=== PATIENT | male | born 1940 | race Caucasian/White ===

== ENCOUNTER 2019-04-20 05:33 | Day surgery (SDC) | payer OTHER ==
[~2019-04-20] VITALS: Ht 195.6 cm; Wt 263.1 kg
[2019-04-20] MEDS ORDERED: SODIUM CHLORIDE 0.9% 1000ML 1,000 ML IV ONE (05:56)
[2019-04-20 07:09] VITALS: BP 128/85
[2019-04-20] MEDS ORDERED: LIDOCAINE HCL 1% 20 ML VIAL ONE (08:59)
[2019-04-20] MEDS ORDERED: PROPOFOL 10 MG/ML 20ML VIAL IV ONE (08:59)
[2019-04-20 09:28] VITALS: BP 106/64
[2019-04-20 09:33] VITALS: BP 109/66
[2019-04-20 09:39] VITALS: BP 119/73
[2019-04-20 09:43] VITALS: BP 116/68
[2019-04-20] MEDS ORDERED: CARB-283 OP (09:47)
[2019-04-20] MEDS ORDERED: GABA800T9 PO (09:47)
[2019-04-20] MEDS ORDERED: CYCLOSPORINE (09:47)
[2019-04-20] MEDS ORDERED: DORZ10DR19 OP (09:47)
[2019-04-20] MEDS ORDERED: HYDR-4068 PO (09:47)
[2019-04-20] MEDS ORDERED: FLUTICASONE (09:47)
[2019-04-20] MEDS ORDERED: BUDE10.2 IH (09:47)
[2019-04-20] MEDS ORDERED: APIX5TAB PO (09:47)
[2019-04-20] MEDS ORDERED: AMLO5TAB9 PO (09:47)
[2019-04-20] MEDS ORDERED: DOCU-133 PO (09:47)
[2019-04-20] MEDS ORDERED: LIDOC (09:47)
[2019-04-20] MEDS ORDERED: ALBUTEROL (09:47)
[2019-04-20] MEDS ORDERED: PROVENTIL (09:47)
[2019-04-20] MEDS ORDERED: BUDESONIDE (09:47)
== END 2019-04-20 10:14 | disposition home or self-care (01) ==
LOC: DAH 05:33
PROVIDERS: ATTEND Internal Medicine
DX: K59.01 Slow transit constipation (principal); D12.2 Benign neoplasm of ascending colon; D12.5 Benign neoplasm of sigmoid colon; J44.9 Chronic obstructive pulmonary disease, unspecified; E66.9 Obesity, unspecified; H40.9 Unspecified glaucoma; I11.0 Hypertensive heart disease with heart failure; I50.9 Heart failure, unspecified; M19.90 Unspecified osteoarthritis, unspecified site; Z86.010 Personal history of colon polyps; Z79.899 Other long term (current) drug therapy; Z98.49 Cataract extraction status, unspecified eye; Z90.49 Acquired absence of other specified parts of digestive tract; Z98.890 Other specified postprocedural states; Z88.0 Allergy status to penicillin; Z88.1 Allergy status to other antibiotic agents; Z88.3 Allergy status to other anti-infective agents; Z68.44 Body mass index [BMI] 60.0-69.9, adult; Z87.891 Personal history of nicotine dependence; Z72.89 Other problems related to lifestyle
CPT/HCPCS: 45380; 45385; 88305; A4215; A4221; A4222; A4223; A4606; A4615; A4663; J2704; J7030

== ENCOUNTER 2020-01-03 19:05 | Emergency (ER) | payer OTHER ==
[~2020-01-03 19:05] MED LIST: ALBUTEROL; AMLO5TAB9 PO; BUDE10.2 IH; BUDESONIDE; CARB-283 OP; CYCLOSPORINE; DOCU-133 PO; DORZ10DR19 OP; FLUTICASONE; GABA800T9 PO; HYDR-4068 PO; LIDOC; PROVENTIL
[2020-01-03] MEDS ORDERED: MORPHINE SULFATE 4 MG/1ML SYG ONE (19:54)
[2020-01-03] MEDS ORDERED: ONDANSETRON HCL 4 MG/2 ML VIAL ONE (19:55)
[2020-01-03 20:01] LABS: BASOPHILS % (AUTO) 0.6 % (0.0-5.0); EOSINOPHILS % (AUTO) 5.5 % (0.0-8.0); HEMATOCRIT 39.9 % (42-54); LYMPHOCYTES % (AUTO) 27.3 % (21.0-51.0); MEAN CORPUSCULAR HGB CONC 32.1 g/dL (32.0-36.0); MEAN CORPUSCULAR VOLUME 87.3 fL (79-99); MONOCYTES % (AUTO) 8.2 % (3.0-13.0); NEUTROPHILS % (AUTO) 57.7 % (40.0-77.0); PLATELET COUNT (AUTO) 148 K/uL (130-400); RED BLOOD CELL COUNT(AUTO) 4.57 MIL/uL (4.50-6.20); RED CELL DISTRIBUTION WIDTH 13.8 % (11.0-15.5); WHITE BLOOD COUNT (AUTO) 8.4 K/uL (4.8-10.8)
[2020-01-03 20:16] LABS: ALBUMIN 3.4 g/dL (3.5-5.0); BILIRUBIN,TOTAL 0.4 mg/dL (0.2-1.0); TOTAL PROTEIN, SERUM 6.7 g/dL (6.0-8.3)
== END 2020-01-03 21:46 | disposition home or self-care (01) ==
LOC: EDH 19:05
DX: G89.29 Other chronic pain (principal); M54.5 Low back pain; J44.9 Chronic obstructive pulmonary disease, unspecified; Z95.828 Presence of other vascular implants and grafts; Z88.0 Allergy status to penicillin; Z91.018 Allergy to other foods; Z87.891 Personal history of nicotine dependence; Z98.890 Other specified postprocedural states
CPT/HCPCS: 36415; 72131; 80053; 85025; 96374; 96375; 99284; J2270; J2405

== ENCOUNTER 2021-12-03 09:28 | Emergency (ER) | payer OTHER ==
[~2021-12-03] VITALS: Ht 195.6 cm; Wt 110.7 kg
[~2021-12-03 09:28] MED LIST changes: +AMLO-257 PO; -AMLO5TAB9 PO
[2021-12-03 10:31] LABS: BASOPHILS % (AUTO) 0.5 % (0.0-5.0); EOSINOPHILS % (AUTO) 11.8 % (0.0-8.0); HEMATOCRIT 39.8 % (42-54); LYMPHOCYTES % (AUTO) 22.9 % (21.0-51.0); MEAN CORPUSCULAR HEMOGLOBIN 28.1 pg (27.0-33.0); MEAN CORPUSCULAR HGB CONC 31.9 g/dL (32.0-36.0); MEAN CORPUSCULAR VOLUME 88.1 fL (79-99); MONOCYTES % (AUTO) 8.4 % (3.0-13.0); NEUTROPHILS % (AUTO) 55.4 % (40.0-77.0); PLATELET COUNT (AUTO) 152 K/uL (130-400); RED BLOOD CELL COUNT(AUTO) 4.52 MIL/uL (4.50-6.20); RED CELL DISTRIBUTION WIDTH 13.2 % (11.0-15.5); WHITE BLOOD COUNT (AUTO) 7.7 K/uL (4.8-10.8)
[2021-12-03 10:41] LABS: INR 1.02 (0.85-1.15); PROTHROMBIN TIME 11.1 SEC (9.6-11.6)
[2021-12-03 10:42] LABS: PARTIAL THROMBOPLASTIN TIME 27.6 SEC (26.3-35.5)
[2021-12-03 10:47] LABS: BILIRUBIN,TOTAL 0.6 mg/dL (0.2-1.0); CREATININE 0.9 mg/dL (0.5-1.5); TOTAL PROTEIN, SERUM 5.9 g/dL (6.0-8.3)
[2021-12-03 11:13] LABS: APPEARANCE,URINE CLEAR (CLEAR); BILIRUBIN,URINE NEGATIVE (NEGATIVE); COLOR,URINE YELLOW (YELLOW); GLUCOSE, URINE (UA) NEGATIVE (NEGATIVE); KETONES,URINE NEGATIVE (NEGATIVE); LEUKOCYTE ESTERASE ,URINE NEGATIVE (NEGATIVE); NITRATE,URINE NEGATIVE (NEGATIVE); OCCULT BLOOD,URINE NEGATIVE (NEGATIVE); PROTEIN,URINE NEGATIVE (NEGATIVE); UROBILINOGEN,URINE 0.2 mg/dL (0.2-1.0)
[2021-12-03] MEDS: SOLU-MEDROL 125MG VIAL IVP ONE (11:16)
[2021-12-03] MEDS: ALBUTEROL INHALER 90MCG/INH IH ONE (11:16)
[2021-12-03] MEDS ORDERED: PRED20TA3 PO (12:02)
[2021-12-03] MEDS ORDERED: AZIT500T2 PO (12:02)
[2021-12-03] MEDS ORDERED: IPRA3AMP24 IH (12:04)
[2021-12-03 12:21] VITALS: BP 122/72
[2021-12-03] MEDS: IPRATROPIUM/ALBUTEROL SULFATE 3 ML SOLUTION IH ONE (12:23)
== END 2021-12-03 12:36 | disposition home or self-care (01) ==
LOC: EDH 09:28
DX: J44.1 Chronic obstructive pulmonary disease with (acute) exacerbation (principal); Z20.822 Contact with and (suspected) exposure to COVID-19; E78.00 Pure hypercholesterolemia, unspecified; I10 Essential (primary) hypertension; Z88.0 Allergy status to penicillin; Z79.899 Other long term (current) drug therapy; Z98.890 Other specified postprocedural states; Z87.891 Personal history of nicotine dependence
CPT/HCPCS: 36415; 71045; 80053; 81003; 82550; 83605; 84484; 85025; 85610; 85730; 87040 ×2; 87088; 87635; 87804 ×2; 94640; 96374; 99284; C9803; J2930

== ENCOUNTER 2022-05-08 10:03 | Emergency (ER) | payer OTHER ==
[~2022-05-08] VITALS: Ht 195.6 cm; Wt 112.5 kg
[~2022-05-08 10:03] MED LIST changes: +ACET-2079 PO; +AZIT500T2 PO; +IPRA3AMP24 IH; +LEVO750T68 PO; +PRED20TA3 PO
[2022-05-08] MEDS ORDERED: SOLU-MEDROL 125MG VIAL IVP STA (10:10)
[2022-05-08] MEDS ORDERED: IPRATROPIUM/ALBUTEROL SULFATE 3 ML SOLUTION IH STA (10:10)
[2022-05-08 10:33] LABS: BASOPHILS % (AUTO) 0.7 % (0.0-5.0); EOSINOPHILS % (AUTO) 11.2 % (0.0-8.0); HEMATOCRIT 41.2 % (42-54); LYMPHOCYTES % (AUTO) 18.3 % (21.0-51.0); MEAN CORPUSCULAR HEMOGLOBIN 28.3 pg (27.0-33.0); MEAN CORPUSCULAR HGB CONC 31.6 g/dL (32.0-36.0); MEAN CORPUSCULAR VOLUME 89.6 fL (79-99); MONOCYTES % (AUTO) 8.7 % (3.0-13.0); PLATELET COUNT (AUTO) 168 K/uL (130-400); RED CELL DISTRIBUTION WIDTH 13.2 % (11.0-15.5); WHITE BLOOD COUNT (AUTO) 8.4 K/uL (4.8-10.8)
[2022-05-08 10:43] LABS: POTASSIUM 3.8 mmol/L (3.5-5.1)
[2022-05-08 10:48] LABS: ALBUMIN 3.3 g/dL (3.5-5.0); TOTAL PROTEIN, SERUM 6.6 g/dL (6.0-8.3)
[2022-05-08] MEDS ORDERED: AZITHROMYCIN 250 MG TABLET PO ONE (11:00)
[2022-05-08] MEDS ORDERED: IPRATROPIUM/ALBUTEROL SULFATE 3 ML SOLUTION IH ONE (13:30)
[2022-05-08] MEDS ORDERED: D-ME118S47 PO (13:33)
[2022-05-08] MEDS ORDERED: METH4TAB3 PO (13:33)
[2022-05-08] MEDS ORDERED: AZIT250T PO (13:33)
[2022-05-08 15:16] VITALS: BP 139/76
== END 2022-05-08 15:17 | disposition home or self-care (01) ==
LOC: EDH 10:03
DX: J44.1 Chronic obstructive pulmonary disease with (acute) exacerbation (principal); J20.9 Acute bronchitis, unspecified; Z20.822 Contact with and (suspected) exposure to COVID-19; F17.200 Nicotine dependence, unspecified, uncomplicated; Z88.0 Allergy status to penicillin; Z79.899 Other long term (current) drug therapy; Z98.890 Other specified postprocedural states; Z60.2 Problems related to living alone
CPT/HCPCS: 99285; 96374; 71045; 87635; 84484; 80053; 85025; 87804 ×2; 36415; 93005; 94640 ×2; C9803; J2930

== ENCOUNTER 2022-05-30 12:04 | Emergency (ER) | payer OTHER ==
[~2022-05-30] VITALS: Ht 180.3 cm; Wt 95.3 kg
[~2022-05-30 12:04] MED LIST changes: +AZIT250T PO; +D-ME118S47 PO; +METH4TAB3 PO
[2022-05-30] MEDS ORDERED: IPRATROPIUM/ALBUTEROL SULFATE 3 ML SOLUTION IH ONE (12:30)
[2022-05-30 12:33] LABS: BASOPHILS % (AUTO) 0.5 % (0.0-5.0); EOSINOPHILS % (AUTO) 8.7 % (0.0-8.0); HEMATOCRIT 40.3 % (42-54); LYMPHOCYTES % (AUTO) 26.2 % (21.0-51.0); MEAN CORPUSCULAR HEMOGLOBIN 28.5 pg (27.0-33.0); MONOCYTES % (AUTO) 7.5 % (3.0-13.0); NEUTROPHILS % (AUTO) 56.1 % (40.0-77.0); PLATELET COUNT (AUTO) 135 K/uL (130-400); RED BLOOD CELL COUNT(AUTO) 4.53 MIL/uL (4.50-6.20); WHITE BLOOD COUNT (AUTO) 5.9 K/uL (4.8-10.8)
[2022-05-30 12:39] LABS: CREATININE 1.1 mg/dL (0.5-1.5); POTASSIUM 3.5 mmol/L (3.5-5.1)
[2022-05-30 12:48] LABS: ALBUMIN 3.2 g/dL (3.5-5.0); MAGNESIUM 1.9 mg/dL (1.80-2.40); TOTAL PROTEIN, SERUM 6.5 g/dL (6.0-8.3)
[2022-05-30] MEDS ORDERED: ONDANSETRON 4MG INJ IVP ONE (13:00)
[2022-05-30] MEDS ORDERED: 0.9%NACL 1000ML 1,000 ML IV ONE (14:00)
[2022-05-30 15:32] VITALS: BP 102/64
[2022-05-30] MEDS ORDERED: ALBUHFA IH (15:48)
[2022-05-30] MEDS ORDERED: BENZ-39 PO (15:48)
[2022-07-02] MEDS ORDERED: DOCU100C33 PO (02:41)
[2022-07-02] MEDS ORDERED: DIPH25TA20 PO (02:41)
[2022-07-02] MEDS ORDERED: AMLO-257 PO (02:41)
[2022-07-02] MEDS ORDERED: RIVA20TA PO (02:41)
[2022-07-02] MEDS ORDERED: GABA800T9 PO (02:41)
[2022-07-02] MEDS ORDERED: LINA145C PO (02:41)
[2022-07-02] MEDS ORDERED: MONT-39 PO (02:41)
[2022-07-02] MEDS ORDERED: TIOT18CA3 IH (02:41)
[2022-07-02] MEDS ORDERED: LATA7.5D OP (13:54)
== END 2022-05-30 16:13 | disposition home or self-care (01) ==
LOC: EDH 12:04
DX: J20.9 Acute bronchitis, unspecified (principal); R42 Dizziness and giddiness; J44.9 Chronic obstructive pulmonary disease, unspecified; I10 Essential (primary) hypertension; F17.200 Nicotine dependence, unspecified, uncomplicated; Z79.51 Long term (current) use of inhaled steroids; Z79.52 Long term (current) use of systemic steroids; Z88.0 Allergy status to penicillin; Z96.653 Presence of artificial knee joint, bilateral
CPT/HCPCS: 99285; 96374; 71045; 96361; 83735; 84484; 80053; 85025; 36415; 93005; 94640; J7030; J2405

== ENCOUNTER 2022-06-10 09:10 | Emergency (ER) | payer OTHER ==
[~2022-06-10] VITALS: Ht 195.6 cm; Wt 113.4 kg
[~2022-06-10 09:10] MED LIST changes: +ALBUHFA IH; +BENZ-39 PO
[2022-06-10] MEDS ORDERED: ALBUTEROL 0.083% 2.5 MG/3 ML INH IH ONE (11:00)
[2022-06-10] MEDS ORDERED: DEXAMETHASONE SOD PHOSPHATE 4 MG/ML 1ML VIAL IM ONE (11:30)
[2022-06-10] MEDS ORDERED: IPRATROPIUM 0.5 MG/2.5 ML INH IH ONE (11:30)
[2022-06-10 14:11] VITALS: BP 124/76
== END 2022-06-10 14:18 | disposition home or self-care (01) ==
LOC: EDH 09:10
DX: J44.1 Chronic obstructive pulmonary disease with (acute) exacerbation (principal); I10 Essential (primary) hypertension; F17.200 Nicotine dependence, unspecified, uncomplicated; Z20.822 Contact with and (suspected) exposure to COVID-19; Z88.0 Allergy status to penicillin; Z96.653 Presence of artificial knee joint, bilateral; Z79.899 Other long term (current) drug therapy
CPT/HCPCS: 99284; 71046; 87635; 87804 ×2; 96372; 94640; J1100; C9803

== ENCOUNTER 2022-06-19 05:46 | Emergency (ER) | payer OTHER ==
[2022-06-19 06:09] LABS: BASOPHILS % (AUTO) 0.8 % (0.0-5.0); HEMATOCRIT 42.2 % (42-54); LYMPHOCYTES % (AUTO) 24.5 % (21.0-51.0); MEAN CORPUSCULAR HEMOGLOBIN 27.8 pg (27.0-33.0); MEAN CORPUSCULAR VOLUME 86.8 fL (79-99); MONOCYTES % (AUTO) 7.8 % (3.0-13.0); NEUTROPHILS % (AUTO) 53.8 % (40.0-77.0); PLATELET COUNT (AUTO) 152 K/uL (130-400); RED BLOOD CELL COUNT(AUTO) 4.86 MIL/uL (4.50-6.20); RED CELL DISTRIBUTION WIDTH 13.4 % (11.0-15.5); WHITE BLOOD COUNT (AUTO) 10.5 K/uL (4.8-10.8)
[2022-06-19 06:27] LABS: ALBUMIN 3.1 g/dL (3.5-5.0); CREATININE 0.9 mg/dL (0.5-1.5); POTASSIUM 3.7 mmol/L (3.5-5.1); TOTAL PROTEIN, SERUM 6.5 g/dL (6.0-8.3)
[2022-06-19] MEDS ORDERED: IPRATROPIUM 0.5 MG/2.5 ML INH IH ONE (06:30)
[2022-06-19] MEDS ORDERED: ALBUTEROL 0.083% 2.5 MG/3 ML INH IH ONE (06:30)
[2022-06-19] MEDS ORDERED: MAG/ALUM/SIMETH 30 ML UDCUP PO ONE (08:00)
[2022-06-19] MEDS ORDERED: PANTOPRAZOLE 40 MG/VIAL IVP ONE (08:00)
[2022-06-19] MEDS ORDERED: DICYCLOMINE HCL 10 MG/5 ML ML PO ONE (08:00)
[2022-06-19] MEDS ORDERED: LIDOCAINE HCL 2% VISCOUS 15 ML UDCUP PO ONE (08:00)
[2022-06-19] MEDS ORDERED: BENZ-39 PO (11:20)
[2022-06-19] MEDS ORDERED: ESOM40CA PO (11:20)
[2022-06-19 11:30] VITALS: BP 116/74
== END 2022-06-19 11:32 | disposition home or self-care (01) ==
LOC: EDH 05:46
DX: J20.9 Acute bronchitis, unspecified (principal); J44.9 Chronic obstructive pulmonary disease, unspecified; I10 Essential (primary) hypertension; K20.90 Esophagitis, unspecified without bleeding; F17.200 Nicotine dependence, unspecified, uncomplicated; Z20.822 Contact with and (suspected) exposure to COVID-19; Z96.653 Presence of artificial knee joint, bilateral; Z88.0 Allergy status to penicillin; Z79.899 Other long term (current) drug therapy; Z98.890 Other specified postprocedural states
CPT/HCPCS: 99285; 96374; 71045; 87635; 84484; 80053; 85025; 87804 ×2; 36415; 93005; 94640; C9803; C9113

== ENCOUNTER 2022-06-24 04:50 | Observation (INO) | payer OTHER ==
[~2022-06-24] VITALS: Ht 195.6 cm; Wt 113.4 kg
[~2022-06-24 04:50] MED LIST changes: +ESOM40CA PO
[2022-06-24 05:23] LABS: BASOPHILS % (AUTO) 0.5 % (0.0-5.0); EOSINOPHILS % (AUTO) 11.8 % (0.0-8.0); HEMATOCRIT 44.2 % (42-54); LYMPHOCYTES % (AUTO) 16.7 % (21.0-51.0); MEAN CORPUSCULAR HEMOGLOBIN 28.3 pg (27.0-33.0); MEAN CORPUSCULAR HGB CONC 31.7 g/dL (32.0-36.0); MEAN CORPUSCULAR VOLUME 89.3 fL (79-99); MONOCYTES % (AUTO) 7.5 % (3.0-13.0); NEUTROPHILS % (AUTO) 62.8 % (40.0-77.0); PLATELET COUNT (AUTO) 151 K/uL (130-400); RED BLOOD CELL COUNT(AUTO) 4.95 MIL/uL (4.50-6.20); RED CELL DISTRIBUTION WIDTH 13.6 % (11.0-15.5); WHITE BLOOD COUNT (AUTO) 13.7 K/uL (4.8-10.8)
[2022-06-24 05:35] LABS: POTASSIUM 4.1 mmol/L (3.5-5.1)
[2022-06-24 05:52] LABS: ALBUMIN 3.4 g/dL (3.5-5.0); TOTAL PROTEIN, SERUM 6.8 g/dL (6.0-8.3)
[2022-06-24] MEDS ORDERED: CEFTRIAXONE 1G VIAL IVP ONE (06:00)
[2022-06-24] MEDS ORDERED: IPRATROPIUM/ALBUTEROL SULFATE 3 ML SOLUTION IH ONE (06:00)
[2022-06-24] MEDS ORDERED: SOLU-MEDROL 125MG VIAL IVP ONE (06:00)
[2022-06-24] MEDS ORDERED: AZITHROMYCIN 250 MG TABLET PO ONE (06:00)
[2022-06-24] MEDS ORDERED: 0.9%NACL 1000ML 1,000 ML IV SCH ×2 (07:30→10:00)
[2022-06-24] MEDS: SOLU-MEDROL 125MG VIAL IVP SCH ×2 (07:30→12:32)
[2022-06-24] MEDS ORDERED: ACETAMINOPHEN 325 MG TAB PO PRN (09:30)
[2022-06-24] MEDS ORDERED: POTASSIUM CHLORIDE 10% ELIXIR 20 MEQ/15 ML UDCUP PO PRN (09:30)
[2022-06-24] MEDS ORDERED: POTASSIUM CHLORIDE 20MEQ/100ML 100 ML IV PRN ×2 (09:30)
[2022-06-24] MEDS ORDERED: MAGNESIUM 2GM PREMIX 50ML 50 ML IV PRN (09:30)
[2022-06-24] MEDS ORDERED: LIDOCAINE HCL-MPF 1% 2ML VIAL IV PRN ×2 (09:30)
[2022-06-24] MEDS ORDERED: GLUCAGON 1MG KIT 1 MG ML IM PRN (09:30)
[2022-06-24] MEDS ORDERED: ONDANSETRON 4MG INJ IVP PRN (09:30)
[2022-06-24] MEDS ORDERED: DEXTROSE 50%-WATER 50 ML DISP.SYRIN IV PRN (09:30)
[2022-06-24] MEDS ORDERED: KCL 20 MEQ ERTAB PO PRN (09:30)
[2022-06-24] MEDS ORDERED: LEVOFLOXACIN 500 MG/D5W 100 ML 100 ML IV SCH (09:30)
[2022-06-24] MEDS ORDERED: ACETAMINOPHEN 650 MG SUPPOSITORY RC PRN (09:30)
[2022-06-24 09:54] LABS: ABG BASE EXCESS -7.6 mmol/L (-2.0-3.0); ABG HCO3 18.5 mmol/L (21.0-28.0); ABG OXYGEN SATURATION 96.5 % (95.0-99.0); ABG PCO2 40 mmHg (35-48)
[2022-06-24] MEDS ORDERED: ALBUTEROL 0.083% 2.5 MG/3 ML INH IH ONE (09:55)
[2022-06-24] MEDS ORDERED: SODIUM BICARB 50MEQ 50ML VIAL IV SCH (10:00)
[2022-06-24] MEDS ORDERED: ALPRAZOLAM 0.25 MG TABLET PO PRN (10:00)
[2022-06-24] MEDS ORDERED: ALBUTEROL 0.083% 2.5 MG/3 ML INH IH PRN (10:00)
[2022-06-24 10:14] LABS: APPEARANCE,URINE CLEAR (CLEAR); BILIRUBIN,URINE NEGATIVE (NEGATIVE); COLOR,URINE YELLOW (YELLOW); GLUCOSE, URINE (UA) NEGATIVE (NEGATIVE); KETONES,URINE NEGATIVE (NEGATIVE); LEUKOCYTE ESTERASE ,URINE 25 Leu/uL (NEGATIVE); NITRATE,URINE NEGATIVE (NEGATIVE); OCCULT BLOOD,URINE NEGATIVE (NEGATIVE); PH,URINE 5.5 (5.0-8.0); PROTEIN,URINE NEGATIVE (NEGATIVE); UROBILINOGEN,URINE 0.2 mg/dL (0.2-1.0)
[2022-06-24 10:26] LABS: CALCIUM OXALATE CRYSTALS,UR RARE /LPF (None Seen); MUCUS,URINE RARE LPF (None Seen); SQUAMOUS EPITHELIAL CELL,UR RARE /HPF (0-2)
[2022-06-24 10:37] LABS: INR 1.03 (0.85-1.15); PROTHROMBIN TIME 11.2 SEC (9.6-11.6)
[2022-06-24 10:38] LABS: PARTIAL THROMBOPLASTIN TIME 29.1 SEC (26.3-35.5)
[2022-06-24 10:50] LABS: THYROID STIMULATING HORMONE 1.8 uIU/mL (0.36-3.74)
[2022-06-24] MEDS ORDERED: IPRATROPIUM 0.5 MG/2.5 ML INH IH SCH (12:00)
[2022-06-24] MEDS ORDERED: ALBUTEROL 0.083% 2.5 MG/3 ML INH IH SCH (12:00)
[2022-06-24] MEDS ORDERED: IPRATROPIUM/ALBUTEROL SULFATE 3 ML SOLUTION IH SCH ×2 (12:00)
[2022-06-24] MEDS ORDERED: BENZONATATE 100 MG CAPSULE PO ONE (12:29)
[2022-06-24 12:39] VITALS: BP 110/84
[2022-06-24] MEDS ORDERED: BENZONATATE 100 MG CAPSULE PO SCH (14:00)
[2022-06-24] MEDS ORDERED: BUDESONIDE 0.5 MG/2 ML INH IH SCH (21:00)
[2022-06-24] MEDS ORDERED: SOLU-MEDROL 40MG VIAL IVP SCH (21:00)
[2022-06-25] MEDS ORDERED: PANTOPRAZOLE 40 MG TAB DR PO SCH (09:00)
== END 2022-06-24 12:45 | disposition home or self-care (01) ==
LOC: EDH 04:50 → EDHIP 07:24
PROVIDERS: ADMIT Internal Medicine Hematology & Oncology; ATTEND Internal Medicine Hematology & Oncology
DX: J96.21 Acute and chronic respiratory failure with hypoxia (principal); Z20.822 Contact with and (suspected) exposure to COVID-19; J44.1 Chronic obstructive pulmonary disease with (acute) exacerbation; E66.9 Obesity, unspecified; E87.20 Acidosis, unspecified; I10 Essential (primary) hypertension; M54.9 Dorsalgia, unspecified; Z99.81 Dependence on supplemental oxygen; Z88.0 Allergy status to penicillin; Z79.899 Other long term (current) drug therapy
CPT/HCPCS: 96361; 96365; 96375; 99285; 84443; 82550; 83874; 84484 ×2; 80053; 82803; 83880; 85025; 85378; 85610; 85730; 87880; 87804 ×2; 84439; 84481; 81001; 36415; 87635; 71045; 93005 ×2; 36600; 94640 ×3; 94664; G0378 ×4; C9803; J1956; J7030; J2930 ×2; J3490 ×2; J0696

== ENCOUNTER 2022-06-29 16:48 | Emergency (ER) | payer OTHER ==
[~2022-06-29] VITALS: Ht 175.3 cm; Wt 90.7 kg
[~2022-06-29 16:48] MED LIST changes: -ACET-2079 PO; -ALBUTEROL; -AMLO-257 PO; -AZIT250T PO; -AZIT500T2 PO; -BUDE10.2 IH; -BUDESONIDE; -CARB-283 OP; -CYCLOSPORINE; -DOCU-133 PO; -DORZ10DR19 OP; -FLUTICASONE; -GABA800T9 PO; -HYDR-4068 PO; -IPRA3AMP24 IH; -LEVO750T68 PO; -LIDOC; -PRED20TA3 PO; -PROVENTIL
[2022-06-29] MEDS ORDERED: MORPHINE 2 MG SYG IVP ONE (17:30)
[2022-06-29] MEDS ORDERED: 0.9%NACL 1000ML 1,000 ML IV ONE (17:30)
[2022-06-29] MEDS ORDERED: KETOROLAC 15MG/ML VIAL (15MG/ML) IV ONE (17:30)
[2022-06-29] MEDS ORDERED: ONDANSETRON 4MG INJ IVP ONE (17:30)
[2022-06-29 18:00] LABS: BASOPHILS % (AUTO) 0.4 % (0.0-5.0); EOSINOPHILS % (AUTO) 6.8 % (0.0-8.0); HEMATOCRIT 42.1 % (42-54); LYMPHOCYTES % (AUTO) 18.3 % (21.0-51.0); MEAN CORPUSCULAR HEMOGLOBIN 28.5 pg (27.0-33.0); MEAN CORPUSCULAR HGB CONC 32.3 g/dL (32.0-36.0); MEAN CORPUSCULAR VOLUME 88.1 fL (79-99); MONOCYTES % (AUTO) 7.1 % (3.0-13.0); NEUTROPHILS % (AUTO) 66.5 % (40.0-77.0); PLATELET COUNT (AUTO) 154 K/uL (130-400); RED BLOOD CELL COUNT(AUTO) 4.78 MIL/uL (4.50-6.20); RED CELL DISTRIBUTION WIDTH 13.5 % (11.0-15.5); WHITE BLOOD COUNT (AUTO) 10.6 K/uL (4.8-10.8)
[2022-06-29 18:05] LABS: APPEARANCE,URINE CLEAR (CLEAR); BILIRUBIN,URINE NEGATIVE (NEGATIVE); COLOR,URINE LIGHT-YELLOW (YELLOW); GLUCOSE, URINE (UA) NEGATIVE (NEGATIVE); KETONES,URINE NEGATIVE (NEGATIVE); LEUKOCYTE ESTERASE ,URINE NEGATIVE Leu/uL (NEGATIVE); NITRATE,URINE NEGATIVE (NEGATIVE); OCCULT BLOOD,URINE NEGATIVE (NEGATIVE); PH,URINE 6.5 (5.0-8.0); PROTEIN,URINE NEGATIVE (NEGATIVE); UROBILINOGEN,URINE 0.2 mg/dL (0.2-1.0)
[2022-06-29 18:07] LABS: MUCUS,URINE RARE LPF (None Seen); WBC,URINE 0-1 /HPF (0-1)
[2022-06-29 18:09] LABS: POTASSIUM 4.1 mmol/L (3.5-5.1)
[2022-06-29 18:13] LABS: ALBUMIN 3.4 g/dL (3.5-5.0); TOTAL PROTEIN, SERUM 6.6 g/dL (6.0-8.3)
[2022-06-29] MEDS ORDERED: IOHEXOL 350 MG/ML 100ML INFUS..BTL IV ONE (19:06)
[2022-06-29] MEDS ORDERED: IPRATROPIUM/ALBUTEROL SULFATE 3 ML SOLUTION IH ONE (20:00)
[2022-06-29] MEDS ORDERED: DOCU-116 PO (20:14)
[2022-06-29 20:41] VITALS: BP 128/84
[2022-07-02] MEDS ORDERED: AMLO-257 PO (02:41)
[2022-07-02] MEDS ORDERED: RIVA20TA PO (02:41)
[2022-07-02] MEDS ORDERED: DIPH25TA20 PO (02:41)
[2022-07-02] MEDS ORDERED: TIOT18CA3 IH (02:41)
[2022-07-02] MEDS ORDERED: DOCU100C33 PO (02:41)
[2022-07-02] MEDS ORDERED: LINA145C PO (02:41)
[2022-07-02] MEDS ORDERED: MONT-39 PO (02:41)
[2022-07-02] MEDS ORDERED: GABA800T9 PO (02:41)
[2022-07-02] MEDS ORDERED: LATA7.5D OP (13:54)
== END 2022-06-29 20:45 | disposition home or self-care (01) ==
LOC: EDH 16:48
DX: K59.00 Constipation, unspecified (principal); J45.909 Unspecified asthma, uncomplicated; I10 Essential (primary) hypertension; Z88.8 Allergy status to other drugs, medicaments and biological substances; Z96.653 Presence of artificial knee joint, bilateral; Z79.899 Other long term (current) drug therapy; Z98.890 Other specified postprocedural states
CPT/HCPCS: 99285; 74177; 96374; 71045; 96361; 96375; 84484; 80053; 83690; 85025; 81001; 36415; 94640; J7030; J2405; J1885; Q9967

== ENCOUNTER 2022-10-31 16:27 | Observation (INO) | payer OTHER ==
[~2022-10-31] VITALS: Ht 195.6 cm; Wt 104.1 kg
[~2022-10-31 16:27] MED LIST changes: -ALBUHFA IH; +AMLO-257 PO; +BENZ-226 PO; -BENZ-39 PO; -D-ME118S47 PO; +DIPH25TA20 PO; +DOCU100C33 PO; -ESOM40CA PO; +ESOM40CA54 PO; +GABA800T9 PO; +LATA7.5D OP; +LINA145C PO; -METH4TAB3 PO; +MONT-39 PO; +RIVA20TA PO
[2022-10-31 16:52] LABS: BASOPHILS % (AUTO) 0.6 % (0.0-5.0); EOSINOPHILS % (AUTO) 9.9 % (0.0-8.0); HEMATOCRIT 42.7 % (42-54); LYMPHOCYTES % (AUTO) 22.4 % (21.0-51.0); MEAN CORPUSCULAR HEMOGLOBIN 27.9 pg (27.0-33.0); MEAN CORPUSCULAR HGB CONC 31.9 g/dL (32.0-36.0); MEAN CORPUSCULAR VOLUME 87.7 fL (79-99); MONOCYTES % (AUTO) 7.6 % (3.0-13.0); NEUTROPHILS % (AUTO) 58.9 % (40.0-77.0); PLATELET COUNT (AUTO) 141 K/uL (130-400); RED BLOOD CELL COUNT(AUTO) 4.87 MIL/uL (4.50-6.20); WHITE BLOOD COUNT (AUTO) 9.4 K/uL (4.8-10.8)
[2022-10-31 17:10] LABS: ALBUMIN 3.6 g/dL (3.5-5.0); MAGNESIUM 2.1 mg/dL (1.80-2.40); POTASSIUM 4.3 mmol/L (3.5-5.1); TOTAL PROTEIN, SERUM 6.7 g/dL (6.0-8.3)
[2022-10-31 17:51] LABS: APPEARANCE,URINE CLEAR (CLEAR); BILIRUBIN,URINE NEGATIVE (NEGATIVE); COLOR,URINE LIGHT-YELLOW (YELLOW); GLUCOSE, URINE (UA) NEGATIVE (NEGATIVE); KETONES,URINE NEGATIVE (NEGATIVE); LEUKOCYTE ESTERASE ,URINE NEGATIVE Leu/uL (NEGATIVE); NITRATE,URINE NEGATIVE (NEGATIVE); OCCULT BLOOD,URINE NEGATIVE (NEGATIVE); PH,URINE 6.5 (5.0-8.0); PROTEIN,URINE NEGATIVE (NEGATIVE); UROBILINOGEN,URINE 0.2 mg/dL (0.2-1.0)
[2022-10-31 17:53] LABS: MUCUS,URINE RARE LPF (None Seen); RBC,URINE 0-1 /HPF (0-1)
[2022-10-31] MEDS ORDERED: SOLU-MEDROL 125MG VIAL IVP ONE (18:00)
[2022-10-31] MEDS ORDERED: IPRATROPIUM/ALBUTEROL SULFATE 3 ML SOLUTION IH ONE (18:00)
[2022-10-31] MEDS ORDERED: SOLU-MEDROL 40MG VIAL ONE (18:14)
[2022-10-31] MEDS ORDERED: SOLU-MEDROL 40MG VIAL IVP ONE (18:30)
[2022-10-31] MEDS ORDERED: ONDANSETRON 4MG INJ IV PRN (20:00)
[2022-10-31] MEDS ORDERED: MORPHINE 4 MG SYG IV PRN (20:00)
[2022-10-31] MEDS ORDERED: ALBUTEROL INHALER 90MCG/INH IH PRN (20:00)
[2022-10-31] MEDS ORDERED: MORPHINE 2 MG SYG IV PRN (20:00)
[2022-10-31] MEDS ORDERED: ACETAMINOPHEN 325 MG TAB PO PRN ×2 (20:00)
[2022-10-31] MEDS ORDERED: ASPIRIN 81MG CHEW TAB PO ONE (20:00)
[2022-10-31] MEDS: NITROGLYCERIN 1GM OINT 1 INCH/1GM TD SCH (20:15)
[2022-10-31 23:20] VITALS: BP 130/83
[2022-11-01 04:00] VITALS: BP 121/78
[2022-11-01 04:51] LABS: BASOPHILS % (AUTO) 0.1 % (0.0-5.0); HEMATOCRIT 43.5 % (42-54); LYMPHOCYTES % (AUTO) 11.9 % (21.0-51.0); MEAN CORPUSCULAR HEMOGLOBIN 28.1 pg (27.0-33.0); MEAN CORPUSCULAR HGB CONC 31.7 g/dL (32.0-36.0); MEAN CORPUSCULAR VOLUME 88.6 fL (79-99); MONOCYTES % (AUTO) 3.3 % (3.0-13.0); NEUTROPHILS % (AUTO) 83.9 % (40.0-77.0); PLATELET COUNT (AUTO) 135 K/uL (130-400); RED BLOOD CELL COUNT(AUTO) 4.91 MIL/uL (4.50-6.20); RED CELL DISTRIBUTION WIDTH 12.9 % (11.0-15.5); WHITE BLOOD COUNT (AUTO) 7.7 K/uL (4.8-10.8)
[2022-11-01 05:02] LABS: CREATININE 0.9 mg/dL (0.5-1.5); MAGNESIUM 2.3 mg/dL (1.80-2.40); PHOSPHORUS 2.8 mg/dL (2.5-4.9); POTASSIUM 4.7 mmol/L (3.5-5.1)
[2022-11-01] MEDS: NITROGLYCERIN 1GM OINT 1 INCH/1GM TD SCH ×2 (05:49→12:14)
[2022-11-01 08:00] VITALS: BP 115/66
[2022-11-01] MEDS ORDERED: FAMOTIDINE 20MG TAB PO SCH (09:00)
[2022-11-01] MEDS ORDERED: ENOXAPARIN SODIUM 40 MG/0.4 ML SYRINGE SQ SCH (09:00)
[2022-11-01] MEDS ORDERED: ASPIRIN 81MG CHEW TAB PO SCH (09:00)
[2022-11-01 12:00] VITALS: BP 107/64
[2022-11-01 13:31] LABS: CHOLESTEROL 108 mg/dL (<200); HDL CHOLESTEROL 58 mg/dL (29-71); LDL DIRECT 42 mg/dL (0-99); TRIGLYCERIDES 49 mg/dL (30-200)
[2022-11-01] MEDS ORDERED: GABAPENTIN 300 MG CAPSULE PO SCH (14:00)
[2022-11-01] MEDS ORDERED: GABAPENTIN 100 MG CAPSULE PO SCH (14:00)
[2022-11-01 16:00] VITALS: BP 112/60
[2022-11-01] MEDS ORDERED: METO25TA6 PO (16:09)
[2022-11-01] MEDS ORDERED: ATOR10 PO (16:11)
[2022-11-01] MEDS ORDERED: ATORVASTATIN 20 MG TABLET PO SCH (21:00)
[2022-11-01] MEDS ORDERED: MONTELUKAST SODIUM 10 MG TAB PO SCH (21:00)
[2022-11-01] MEDS ORDERED: DOCUSATE SODIUM 100 MG CAP PO SCH (21:00)
[2022-11-01] MEDS ORDERED: LATANOPROST 2.5 ML DROPS OP SCH (21:00)
[2022-11-01] MEDS ORDERED: METOPROLOL TARTRATE 25 MG TAB PO SCH (21:00)
[2022-11-02] MEDS ORDERED: AMLODIPINE 5 MG TAB PO SCH (09:00)
[2022-11-02] MEDS ORDERED: ENOXAPARIN SODIUM 30 MG/0.3 ML SQ SCH (09:00)
[2022-11-02] MEDS ORDERED: RIVAROXABAN 20 MG TABLET PO SCH (09:00)
== END 2022-11-01 18:00 | disposition home or self-care (01) ==
LOC: EDH 16:27 → EDHIP 19:31 → INTOOBSV 19:31 → 4DH 22:56
PROVIDERS: ADMIT Internal Medicine; ATTEND Internal Medicine
DX: I20.0 Unstable angina (principal); Z20.822 Contact with and (suspected) exposure to COVID-19; I10 Essential (primary) hypertension; K21.9 Gastro-esophageal reflux disease without esophagitis; J44.1 Chronic obstructive pulmonary disease with (acute) exacerbation; F17.200 Nicotine dependence, unspecified, uncomplicated; Z86.73 Personal history of transient ischemic attack (TIA), and cerebral infarction without residual deficits; Z87.11 Personal history of peptic ulcer disease; Z95.1 Presence of aortocoronary bypass graft; Z96.653 Presence of artificial knee joint, bilateral; Z88.0 Allergy status to penicillin; Z79.899 Other long term (current) drug therapy; Z79.82 Long term (current) use of aspirin
CPT/HCPCS: 96374; 99285; 83735 ×2; 84484 ×4; 80053; 85025 ×2; 87880; 87804 ×2; 81001; 36415 ×2; 87635; 71045; 93005 ×2; 94640; 84100; 80061; 80048; C9803; J2920; G0378 ×2

== ENCOUNTER 2022-11-11 13:31 | Emergency (ER) | payer OTHER ==
[~2022-11-11] VITALS: Ht 195.6 cm; Wt 106.1 kg
[~2022-11-11 13:31] MED LIST changes: +ATOR10 PO; +METO25TA6 PO
[2022-11-11 14:02] LABS: BASOPHILS % (AUTO) 0.7 % (0.0-5.0); EOSINOPHILS % (AUTO) 7.9 % (0.0-8.0); HEMATOCRIT 39.2 % (42-54); LYMPHOCYTES % (AUTO) 25.8 % (21.0-51.0); MEAN CORPUSCULAR HEMOGLOBIN 28.6 pg (27.0-33.0); MEAN CORPUSCULAR HGB CONC 32.7 g/dL (32.0-36.0); MEAN CORPUSCULAR VOLUME 87.7 fL (79-99); MONOCYTES % (AUTO) 9.1 % (3.0-13.0); NEUTROPHILS % (AUTO) 55.2 % (40.0-77.0); PLATELET COUNT (AUTO) 152 K/uL (130-400); RED BLOOD CELL COUNT(AUTO) 4.47 MIL/uL (4.50-6.20); RED CELL DISTRIBUTION WIDTH 13.1 % (11.0-15.5); WHITE BLOOD COUNT (AUTO) 7.5 K/uL (4.8-10.8)
[2022-11-11 14:10] LABS: CREATININE 0.9 mg/dL (0.5-1.5); POTASSIUM 3.6 mmol/L (3.5-5.1)
[2022-11-11 14:32] LABS: ALBUMIN 3.2 g/dL (3.5-5.0)
[2022-11-11] MEDS ORDERED: PREDNISONE 20 MG TABLET PO ONE (18:00)
[2022-11-11] MEDS ORDERED: IPRATROPIUM/ALBUTEROL SULFATE 3 ML SOLUTION IH ONE (18:00)
[2022-11-11] MEDS ORDERED: BUDESONIDE 0.5 MG/2 ML INH IH SCH (18:00)
[2022-11-11 18:15] LABS: APPEARANCE,URINE CLEAR (CLEAR); BILIRUBIN,URINE NEGATIVE (NEGATIVE); COLOR,URINE LIGHT-YELLOW (YELLOW); GLUCOSE, URINE (UA) NEGATIVE (NEGATIVE); KETONES,URINE NEGATIVE (NEGATIVE); LEUKOCYTE ESTERASE ,URINE 25 Leu/uL (NEGATIVE); NITRATE,URINE NEGATIVE (NEGATIVE); OCCULT BLOOD,URINE NEGATIVE (NEGATIVE); PH,URINE 5.5 (5.0-8.0); PROTEIN,URINE NEGATIVE (NEGATIVE); UROBILINOGEN,URINE 0.2 mg/dL (0.2-1.0)
[2022-11-11 18:36] LABS: BACTERIA,URINE FEW /HPF (None Seen); CALCIUM OXALATE CRYSTALS,UR RARE /LPF (None Seen); MUCUS,URINE RARE LPF (None Seen); RBC,URINE 0-1 /HPF (0-1)
[2022-11-11 18:44] LABS: ABG BASE EXCESS -2.5 mmol/L (-2.0-3.0); ABG HCO3 21.3 mmol/L (21.0-28.0); ABG PCO2 34 mmHg (35-48)
[2022-11-11] MEDS ORDERED: ALBU2.5V2 IH (19:52)
[2022-11-11] MEDS ORDERED: BUDE1AMP2 IH (19:52)
[2022-11-11 20:16] VITALS: BP 115/68
== END 2022-11-11 20:19 | disposition home or self-care (01) ==
LOC: EDH 13:31
DX: J45.901 Unspecified asthma with (acute) exacerbation (principal); I10 Essential (primary) hypertension; F17.200 Nicotine dependence, unspecified, uncomplicated; J44.9 Chronic obstructive pulmonary disease, unspecified; Z79.01 Long term (current) use of anticoagulants; Z79.51 Long term (current) use of inhaled steroids; Z79.52 Long term (current) use of systemic steroids; Z79.899 Other long term (current) drug therapy; Z86.73 Personal history of transient ischemic attack (TIA), and cerebral infarction without residual deficits; Z88.0 Allergy status to penicillin
CPT/HCPCS: 36415; 36600; 71045; 80053; 81001; 82803; 84484; 85025; 93005; 94640

== ENCOUNTER 2022-11-21 10:39 | Emergency (ER) | payer OTHER ==
[~2022-11-21] VITALS: Ht 195.6 cm; Wt 105.7 kg
[~2022-11-21 10:39] MED LIST changes: +ALBU2.5V2 IH; +BUDE1AMP2 IH
[2022-11-21 10:51] LABS: BASOPHILS % (AUTO) 0.6 % (0.0-5.0); EOSINOPHILS % (AUTO) 5.5 % (0.0-8.0); HEMATOCRIT 40.8 % (42-54); LYMPHOCYTES % (AUTO) 28.5 % (21.0-51.0); MEAN CORPUSCULAR HEMOGLOBIN 28.8 pg (27.0-33.0); MEAN CORPUSCULAR HGB CONC 33.1 g/dL (32.0-36.0); MEAN CORPUSCULAR VOLUME 87.2 fL (79-99); MONOCYTES % (AUTO) 8.5 % (3.0-13.0); NEUTROPHILS % (AUTO) 55.8 % (40.0-77.0); PLATELET COUNT (AUTO) 149 K/uL (130-400); RED BLOOD CELL COUNT(AUTO) 4.68 MIL/uL (4.50-6.20); RED CELL DISTRIBUTION WIDTH 13.5 % (11.0-15.5); WHITE BLOOD COUNT (AUTO) 9.1 K/uL (4.8-10.8)
[2022-11-21 11:19] LABS: CREATININE 0.9 mg/dL (0.5-1.5); POTASSIUM 3.7 mmol/L (3.5-5.1)
[2022-11-21 11:24] LABS: ALBUMIN 3.3 g/dL (3.5-5.0); MAGNESIUM 1.7 mg/dL (1.80-2.40); TOTAL PROTEIN, SERUM 6.2 g/dL (6.0-8.3)
[2022-11-21 11:38] LABS: B-TYPE NATRIURETIC PEPTIDE 53 pg/mL (0-100)
[2022-11-21] MEDS ORDERED: DOXY100T2 PO (12:54)
[2022-11-21] MEDS ORDERED: GUAI5LIQ13 PO (12:54)
[2022-11-21] MEDS ORDERED: PRED20TA3 PO (12:54)
[2022-11-21] MEDS ORDERED: IPRATROPIUM/ALBUTEROL SULFATE 3 ML SOLUTION IH ONE (13:00)
[2022-11-21] MEDS ORDERED: ALBUHFA IH (13:44)
[2022-11-21] MEDS ORDERED: ADV250 IH (13:44)
[2022-11-21 14:05] VITALS: BP 103/69
== END 2022-11-21 14:06 | disposition home or self-care (01) ==
LOC: EDH 10:39
DX: J44.1 Chronic obstructive pulmonary disease with (acute) exacerbation (principal); J45.909 Unspecified asthma, uncomplicated; I10 Essential (primary) hypertension; F17.200 Nicotine dependence, unspecified, uncomplicated; Z79.01 Long term (current) use of anticoagulants; Z79.51 Long term (current) use of inhaled steroids; Z79.52 Long term (current) use of systemic steroids; Z79.899 Other long term (current) drug therapy; Z86.73 Personal history of transient ischemic attack (TIA), and cerebral infarction without residual deficits; Z88.0 Allergy status to penicillin
CPT/HCPCS: 36415; 71045; 80053; 82948; 83735; 83880; 84484; 85025; 93005; 94640

== ENCOUNTER 2023-06-04 12:06 | Emergency (ER) | payer OTHER ==
[~2023-06-04] VITALS: Ht 195.6 cm; Wt 37.2 kg
[~2023-06-04 12:06] MED LIST changes: +AEC81 PO; -ALBU2.5V2 IH; -ATOR10 PO; -BENZ-226 PO; -BUDE1AMP2 IH; -DIPH25TA20 PO; -DOCU100C33 PO; +DOCU100P MC; +FERS325 PO; +IPRA3AMP24 IH; -LATA7.5D OP; -METO25TA6 PO; -MONT-39 PO; +SERT-438 PO; +TIOT4MIS2 IH; +TRAM50TA4 PO; +[UNRECOGNIZED DRUG - CODE] PO
[2023-06-04 12:40] LABS: BASOPHILS # (AUTO) 0.04 K/uL (0.00-0.20); BASOPHILS % (AUTO) 0.6 % (0.0-5.0); EOSINOPHILS # (AUTO) 0.08 K/uL (0.00-0.70); EOSINOPHILS % (AUTO) 1.1 % (0.0-8.0); HEMATOCRIT 39.5 % (42-54); IMMATURE GRANULOCYTE ABSOLUTE 0.12 K/uL (0-1); LYMPHOCYTES # (AUTO) 1.7 K/uL (1.0-4.8); LYMPHOCYTES % (AUTO) 24.1 % (21.0-51.0); MEAN CORPUSCULAR HEMOGLOBIN 28.5 pg (27.0-33.0); MEAN CORPUSCULAR HGB CONC 32.4 g/dL (32.0-36.0); MONOCYTES # (AUTO) 0.7 K/uL (0.1-1.0); MONOCYTES % (AUTO) 10.5 % (3.0-13.0); NEUTROPHILS # (AUTO) 4.3 K/uL (1.8-7.7); PLATELET COUNT (AUTO) 183 K/uL (130-400); RED BLOOD CELL COUNT(AUTO) 4.49 MIL/uL (4.50-6.20)
[2023-06-04 12:59] LABS: ALBUMIN 3.1 g/dL (3.5-5.0); BILIRUBIN,TOTAL 0.5 mg/dL (0.2-1.0); CREATININE 1.1 mg/dL (0.5-1.5); TOTAL PROTEIN, SERUM 6.5 g/dL (6.0-8.3)
[2023-06-04 14:20] VITALS: BP 134/82; O2SAT 98
[2023-06-04] MEDS ORDERED: IPRATROPIUM/ALBUTEROL SULFATE 3 ML SOLUTION IH ONE (14:30)
[2023-06-04 14:59] VITALS: PULSE 80; RESP 20
[2023-06-04] MEDS ORDERED: ALBU90AE2 IH (16:48)
== END 2023-06-04 16:52 | disposition home or self-care (01) ==
LOC: EDH 12:06
DX: J45.909 Unspecified asthma, uncomplicated (principal); R05.9 Cough, unspecified; J44.9 Chronic obstructive pulmonary disease, unspecified; F17.200 Nicotine dependence, unspecified, uncomplicated; Z79.82 Long term (current) use of aspirin; Z79.899 Other long term (current) drug therapy; Z98.890 Other specified postprocedural states; Z88.0 Allergy status to penicillin
CPT/HCPCS: 36415; 71045; 80053; 84484; 85025; 93005; 94640

== ENCOUNTER 2023-06-07 11:25 | Observation (INO) | payer OTHER ==
[~2023-06-07] VITALS: Ht 170.2 cm; Wt 113.8 kg
[~2023-06-07 11:25] MED LIST changes: +ALBU90AE2 IH
[2023-06-07 12:12] LABS: APPEARANCE,URINE CLEAR (CLEAR); BILIRUBIN,URINE NEGATIVE (NEGATIVE); COLOR,URINE YELLOW (YELLOW); GLUCOSE, URINE (UA) NEGATIVE (NEGATIVE); KETONES,URINE NEGATIVE (NEGATIVE); LEUKOCYTE ESTERASE ,URINE 250 Leu/uL (NEGATIVE); NITRATE,URINE NEGATIVE (NEGATIVE); OCCULT BLOOD,URINE NEGATIVE (NEGATIVE); PROTEIN,URINE NEGATIVE (NEGATIVE); UROBILINOGEN,URINE 0.2 mg/dL (0.2-1.0)
[2023-06-07 12:16] LABS: ADD UA MICROSCOPIC YES
[2023-06-07 12:18] LABS: BASOPHILS # (AUTO) 0.05 K/uL (0.00-0.20); BASOPHILS % (AUTO) 0.5 % (0.0-5.0); EOSINOPHILS # (AUTO) 0.15 K/uL (0.00-0.70); EOSINOPHILS % (AUTO) 1.4 % (0.0-8.0); HEMATOCRIT 41.8 % (42-54); IMMATURE GRANULOCYTE ABSOLUTE 0.19 K/uL (0-1); LYMPHOCYTES # (AUTO) 0.8 K/uL (1.0-4.8); LYMPHOCYTES % (AUTO) 7.1 % (21.0-51.0); MEAN CORPUSCULAR HEMOGLOBIN 29.1 pg (27.0-33.0); MEAN CORPUSCULAR HGB CONC 32.5 g/dL (32.0-36.0); MEAN CORPUSCULAR VOLUME 89.5 fL (79-99); MONOCYTES # (AUTO) 0.9 K/uL (0.1-1.0); MONOCYTES % (AUTO) 7.9 % (3.0-13.0); NEUTROPHILS # (AUTO) 8.9 K/uL (1.8-7.7); NEUTROPHILS % (AUTO) 81.4 % (40.0-77.0); PLATELET COUNT (AUTO) 174 K/uL (130-400); RED BLOOD CELL COUNT(AUTO) 4.67 MIL/uL (4.50-6.20); RED CELL DISTRIBUTION WIDTH 13.2 % (11.0-15.5); WHITE BLOOD COUNT (AUTO) 10.9 K/uL (4.8-10.8)
[2023-06-07 12:19] LABS: BACTERIA,URINE RARE /HPF (None Seen); MUCUS,URINE RARE LPF (None Seen); OTHER CASTS, URINE 1 /LPF (None Seen)
[2023-06-07 12:34] LABS: ALBUMIN 3.2 g/dL (3.5-5.0); BILIRUBIN,TOTAL 0.8 mg/dL (0.2-1.0); CREATININE 1.1 mg/dL (0.5-1.5); POTASSIUM 3.9 mmol/L (3.5-5.1); TOTAL PROTEIN, SERUM 6.7 g/dL (6.0-8.3)
[2023-06-07] MEDS: BENZONATATE 100 MG CAPSULE PO PRN ×2 (15:36→22:03)
[2023-06-07 16:30] VITALS: PULSE 85; RESP 20
[2023-06-07] MEDS ORDERED: IPRATROPIUM/ALBUTEROL SULFATE 3 ML SOLUTION IH ONE (16:30)
[2023-06-07 16:35] VITALS: PULSE 85; RESP 20; O2SAT 97
[2023-06-07 19:05] VITALS: PULSE 84; RESP 18
[2023-06-07] MEDS: IPRATROPIUM/ALBUTEROL SULFATE 3 ML SOLUTION IH SCH ×2 (19:05→22:30)
[2023-06-07 21:00] VITALS: BP 125/67; PULSE 96; RESP 19
[2023-06-07] MEDS ORDERED: ACETAMINOPHEN 325 MG TAB PO PRN (21:30)
[2023-06-07 22:30] VITALS: PULSE 92; RESP 18
[2023-06-07 23:03] VITALS: TEMP 99.5
[2023-06-08] VITALS (14 sets, daily range): BP systolic 108–134; BP diastolic 62–77; PULSE 76–98; RESP 16–20; O2SAT 94–100
[2023-06-08] MEDS: IPRATROPIUM/ALBUTEROL SULFATE 3 ML SOLUTION IH SCH ×6 (02:30→22:42)
[2023-06-08] MEDS: BENZONATATE 100 MG CAPSULE PO PRN ×2 (06:40→20:55)
[2023-06-08] MEDS ORDERED: AZITHROMYCIN 500MG+NS 250ML 250 ML IVPB SCH ×2 (11:30→17:30)
[2023-06-08] MEDS ORDERED: ACETYLCYSTEINE 10% 100MG/ML 4ML VIAL PO SCH (11:30)
[2023-06-08] MEDS ORDERED: CEFTRIAXONE 2GM VIAL IVPB SCH ×2 (11:30→20:30)
[2023-06-08] MEDS ORDERED: GUAIFENESIN-CODEINE 5 ML SYRUP PO PRN (11:30)
[2023-06-08 16:33] LABS: ABG HCO3 24.5 mmol/L (21.0-28.0); ABG OXYGEN SATURATION 95.6 % (95.0-99.0); ABG PCO2 36 mmHg (35-48); ABG PH 7.452 (7.35-7.450); PO2, ARTERIAL BG 73.9 mmHg (83.0-108.0); VENT MODE, BG RA (ROOM AIR)
[2023-06-08] MEDS: SOLU-MEDROL 40MG VIAL IVP SCH (16:55)
[2023-06-08] MEDS: CEFEPIME HCL 2 GM VIAL IVPB SCH (16:55)
[2023-06-08] MEDS ORDERED: BUDESONIDE 0.5 MG/2 ML INH IH ONE (18:19)
[2023-06-08] MEDS: BUDESONIDE 0.5 MG/2 ML INH IH SCH (18:47)
[2023-06-08] MEDS: ACETYLCYSTEINE 10% 100MG/ML 4ML VIAL IH SCH (22:43)
[2023-06-09] VITALS (8 sets, daily range): BP systolic 125–130; BP diastolic 66–75; PULSE 49–89; RESP 17–18; O2SAT 96–98
[2023-06-09] MEDS: SOLU-MEDROL 40MG VIAL IVP SCH ×2 (00:04→08:42)
[2023-06-09] MEDS: IPRATROPIUM/ALBUTEROL SULFATE 3 ML SOLUTION IH SCH ×4 (02:00→14:00)
[2023-06-09] MEDS: ACETYLCYSTEINE 10% 100MG/ML 4ML VIAL IH SCH ×4 (02:11→15:00)
[2023-06-09] MEDS: CEFEPIME HCL 2 GM VIAL IVPB SCH (03:39)
[2023-06-09 06:26] LABS: BASOPHILS # (AUTO) 0.02 K/uL (0.00-0.20); BASOPHILS % (AUTO) 0.3 % (0.0-5.0); IMMATURE GRANULOCYTE ABSOLUTE 0.15 K/uL (0-1); LYMPHOCYTES # (AUTO) 0.6 K/uL (1.0-4.8); LYMPHOCYTES % (AUTO) 8.7 % (21.0-51.0); MEAN CORPUSCULAR HEMOGLOBIN 28.8 pg (27.0-33.0); MEAN CORPUSCULAR HGB CONC 32.2 g/dL (32.0-36.0); MEAN CORPUSCULAR VOLUME 89.5 fL (79-99); MONOCYTES # (AUTO) 0.3 K/uL (0.1-1.0); MONOCYTES % (AUTO) 4.6 % (3.0-13.0); NEUTROPHILS # (AUTO) 6.1 K/uL (1.8-7.7); NEUTROPHILS % (AUTO) 84.3 % (40.0-77.0); PLATELET COUNT (AUTO) 152 K/uL (130-400); RED BLOOD CELL COUNT(AUTO) 4.58 MIL/uL (4.50-6.20); RED CELL DISTRIBUTION WIDTH 13.2 % (11.0-15.5); WHITE BLOOD COUNT (AUTO) 7.2 K/uL (4.8-10.8)
[2023-06-09 06:40] LABS: POTASSIUM 4.2 mmol/L (3.5-5.1)
[2023-06-09 07:09] LABS: B-TYPE NATRIURETIC PEPTIDE 82 pg/mL (0-100)
[2023-06-09] MEDS: BUDESONIDE 0.5 MG/2 ML INH IH SCH (07:40)
[2023-06-09] MEDS ORDERED: FOLIC ACID PO SCH (08:00)
[2023-06-09] MEDS ORDERED: [UNRECOGNIZED DRUG - OTHER] PO SCH (08:00)
[2023-06-09] MEDS ORDERED: Vitamin B Complex/Vit C/Folic Acid PO SCH (09:00)
[2023-06-09] MEDS ORDERED: SERTRALINE HCL 50 MG TABLET PO SCH (09:00)
[2023-06-09] MEDS ORDERED: NON-FORMULARY MEDICATION 1 EACH (Sertraline HCl 25 MG) PO SCH (09:00)
[2023-06-09] MEDS ORDERED: RIVAROXABAN 20 MG TABLET PO SCH (09:00)
[2023-06-09] MEDS ORDERED: AMLODIPINE 5 MG TAB PO SCH (09:00)
[2023-06-09] MEDS ORDERED: DOXY100T2 PO (16:15)
[2023-06-09] MEDS ORDERED: METH4TAB3 PO (16:15)
== END 2023-06-09 17:30 | disposition home or self-care (01) ==
LOC: EDH 11:25 → EDHIP 14:54 → 3CH 06-08 01:53
PROVIDERS: ADMIT Internal Medicine Hematology & Oncology; ATTEND Internal Medicine Hematology & Oncology
DX: J44.1 Chronic obstructive pulmonary disease with (acute) exacerbation (principal); K59.9 Functional intestinal disorder, unspecified; N30.00 Acute cystitis without hematuria; I48.91 Unspecified atrial fibrillation; I10 Essential (primary) hypertension; I26.99 Other pulmonary embolism without acute cor pulmonale; Z88.0 Allergy status to penicillin; Z79.82 Long term (current) use of aspirin; Z87.891 Personal history of nicotine dependence; Z79.01 Long term (current) use of anticoagulants
CPT/HCPCS: 99284; 82550; 84484; 80053; 83690; 85025 ×2; 87040 ×2; 87088; 81001; 36415 ×2; 71045; 93005; 94640 ×12; 94664; 96365; 96375; 82803; 87071; 87205; 93880; 36600; 96376; 80048; 83880; 85378; 93970; 84145; G0378 ×47; J2920 ×3; J0456; J0692 ×2; J7608 ×3

== ENCOUNTER 2023-06-30 08:39 | Emergency (ER) | payer OTHER ==
[~2023-06-30] VITALS: Ht 195.6 cm; Wt 113.4 kg
[~2023-06-30 08:39] MED LIST changes: -AEC81 PO; +ALBU10.7 IH; -ALBU90AE2 IH; +BENZ-226 PO; -DOCU100P MC; -FERS325 PO; -GABA800T9 PO; -IPRA3AMP24 IH; +LEVO-70 PO; -LINA145C PO; +METH4TAB3 PO; -TIOT4MIS2 IH
[2023-06-30] MEDS ORDERED: MECLIZINE HCL 25 MG TABLET PO ONE (09:30)
[2023-06-30 09:43] VITALS: BP 97/56; PULSE 79; RESP 18; O2SAT 97
[2023-06-30 09:50] LABS: BASOPHILS # (AUTO) 0.04 K/uL (0.00-0.20); BASOPHILS % (AUTO) 0.5 % (0.0-5.0); EOSINOPHILS % (AUTO) 2.6 % (0.0-8.0); HEMATOCRIT 38.3 % (42-54); IMMATURE GRANULOCYTE ABSOLUTE 0.24 K/uL (0-1); LYMPHOCYTES % (AUTO) 25.5 % (21.0-51.0); MEAN CORPUSCULAR HEMOGLOBIN 29.1 pg (27.0-33.0); MEAN CORPUSCULAR HGB CONC 32.4 g/dL (32.0-36.0); MEAN CORPUSCULAR VOLUME 89.9 fL (79-99); MONOCYTES # (AUTO) 0.8 K/uL (0.1-1.0); MONOCYTES % (AUTO) 10.4 % (3.0-13.0); NEUTROPHILS # (AUTO) 4.5 K/uL (1.8-7.7); NEUTROPHILS % (AUTO) 57.9 % (40.0-77.0); PLATELET COUNT (AUTO) 113 K/uL (130-400); RED BLOOD CELL COUNT(AUTO) 4.26 MIL/uL (4.50-6.20); WHITE BLOOD COUNT (AUTO) 7.7 K/uL (4.8-10.8)
[2023-06-30 09:57] LABS: CARBON DIOXIDE 29 mmol/L (21-32); CHLORIDE 104 mmol/L (101-111); CREATININE 0.9 mg/dL (0.5-1.5); GLOMERULAR FILTR. RATE CALC 85 mL/min (>90); GLUCOSE,RANDOM 101 mg/dL (70-105); POTASSIUM 3.8 mmol/L (3.5-5.1); SODIUM SERUM 140 mmol/L (136-145); UREA NITROGEN, BLOOD 15 mg/dL (7-18)
[2023-06-30] MEDS ORDERED: KETAMINE 50MG/ML SYRINGE 50 MG/ML DISP.SYRIN IV ONE ×2 (10:00→11:30)
[2023-06-30 10:08] LABS: ALCOHOL, BLOOD < 3 mg/dL (0-10)
[2023-06-30] MEDS ORDERED: MECL50TA4 PO (13:19)
[2023-06-30] MEDS ORDERED: AZIT500T4 PO (13:19)
[2023-06-30] MEDS ORDERED: AZITHROMYCIN 250 MG TABLET PO ONE (13:30)
== END 2023-06-30 13:29 | disposition home or self-care (01) ==
LOC: EDH 08:39
DX: H81.10 Benign paroxysmal vertigo, unspecified ear (principal); H70.92 Unspecified mastoiditis, left ear; J45.909 Unspecified asthma, uncomplicated; I10 Essential (primary) hypertension; J44.9 Chronic obstructive pulmonary disease, unspecified; F17.200 Nicotine dependence, unspecified, uncomplicated; Z79.01 Long term (current) use of anticoagulants; Z79.52 Long term (current) use of systemic steroids; Z88.0 Allergy status to penicillin; Z90.49 Acquired absence of other specified parts of digestive tract
CPT/HCPCS: 99285; 70551; 96374; 84443; 83735; 80048; 85025; 36415; 96376; J3490 ×2

== ENCOUNTER 2023-07-13 18:16 | Observation (INO) | payer OTHER ==
[~2023-07-13] VITALS: Ht 195.6 cm; Wt 111.9 kg
[~2023-07-13 18:16] MED LIST changes: +AZIT500T4 PO; +MECL50TA4 PO
[2023-07-13 19:29] LABS: BASOPHILS # (AUTO) 0.03 K/uL (0.00-0.20); BASOPHILS % (AUTO) 0.4 % (0.0-5.0); EOSINOPHILS # (AUTO) 0.23 K/uL (0.00-0.70); EOSINOPHILS % (AUTO) 3.4 % (0.0-8.0); IMMATURE GRANULOCYTE ABSOLUTE 0.12 K/uL (0-1); LYMPHOCYTES # (AUTO) 1.6 K/uL (1.0-4.8); LYMPHOCYTES % (AUTO) 23.9 % (21.0-51.0); MEAN CORPUSCULAR HEMOGLOBIN 29.1 pg (27.0-33.0); MEAN CORPUSCULAR VOLUME 88.1 fL (79-99); MONOCYTES # (AUTO) 0.7 K/uL (0.1-1.0); MONOCYTES % (AUTO) 9.7 % (3.0-13.0); NEUTROPHILS # (AUTO) 4.2 K/uL (1.8-7.7); NEUTROPHILS % (AUTO) 60.8 % (40.0-77.0); PLATELET COUNT (AUTO) 178 K/uL (130-400); RED BLOOD CELL COUNT(AUTO) 4.54 MIL/uL (4.50-6.20); RED CELL DISTRIBUTION WIDTH 13.3 % (11.0-15.5); WHITE BLOOD COUNT (AUTO) 6.8 K/uL (4.8-10.8)
[2023-07-13 19:47] LABS: CREATININE 1.1 mg/dL (0.5-1.5)
[2023-07-13 19:52] LABS: ALBUMIN 3.3 g/dL (3.5-5.0); BILIRUBIN,TOTAL 0.4 mg/dL (0.2-1.0); TOTAL PROTEIN, SERUM 6.6 g/dL (6.0-8.3)
[2023-07-13 22:11] VITALS: PULSE 78; RESP 20
[2023-07-13] MEDS: ALBUTEROL 0.083% 2.5 MG/3 ML INH IH ONE (22:12)
[2023-07-13 23:16] LABS: RAPID GROUP A STREP negative (NEGATIVE)
[2023-07-13 23:21] LABS: APPEARANCE,URINE CLEAR (CLEAR); BILIRUBIN,URINE NEGATIVE (NEGATIVE); COLOR,URINE YELLOW (YELLOW); GLUCOSE, URINE (UA) NEGATIVE (NEGATIVE); KETONES,URINE NEGATIVE (NEGATIVE); LEUKOCYTE ESTERASE ,URINE 25 Leu/uL (NEGATIVE); NITRATE,URINE NEGATIVE (NEGATIVE); OCCULT BLOOD,URINE NEGATIVE (NEGATIVE); PH,URINE 5.5 (5.0-8.0); PROTEIN,URINE NEGATIVE (NEGATIVE); UROBILINOGEN,URINE 0.2 mg/dL (0.2-1.0)
[2023-07-13 23:25] LABS: INFLUENZA TYPE A Negative For Type A (NEGATIVE); INFLUENZA TYPE B Negative For Type B (NEGATIVE)
[2023-07-13 23:31] LABS: ADD UA MICROSCOPIC YES
[2023-07-13 23:39] LABS: MUCUS,URINE RARE LPF (None Seen); SQUAMOUS EPITHELIAL CELL,UR RARE /HPF (0-2)
[2023-07-13] MEDS: HYDROXYZINE 25 MG TABLET PO ONE (23:56)
[2023-07-13] MEDS: M.V.I. IV [ADULT] 10 ML, FOLIC ACID 1 MG, THIAMINE HCL 100 MG in 0.9%NACL 1000ML 1,000 ML IV SCH (23:57)
[2023-07-14] VITALS (13 sets, daily range): BP systolic 113–134; BP diastolic 60–80; PULSE 64–89; RESP 18–24; O2SAT 97–98
[2023-07-14] MEDS ORDERED: ONDANSETRON 4MG INJ IV PRN (03:00)
[2023-07-14] MEDS ORDERED: ACETAMINOPHEN 325 MG TAB PO PRN (03:00)
[2023-07-14] MEDS ORDERED: MECL-302 PO (03:06)
[2023-07-14] MEDS ORDERED: RIVA20TA PO (03:06)
[2023-07-14] MEDS: TAMSULOSIN HCL 0.4 MG CAP.ER.24H PO ONE (03:16)
[2023-07-14] MEDS: IPRATROPIUM/ALBUTEROL SULFATE 3 ML SOLUTION IH SCH (06:48)
[2023-07-14 07:17] LABS: BASOPHILS # (AUTO) 0.04 K/uL (0.00-0.20); BASOPHILS % (AUTO) 0.7 % (0.0-5.0); EOSINOPHILS # (AUTO) 0.23 K/uL (0.00-0.70); EOSINOPHILS % (AUTO) 4.1 % (0.0-8.0); HEMATOCRIT 37.5 % (42-54); IMMATURE GRANULOCYTE ABSOLUTE 0.11 K/uL (0-1); LYMPHOCYTES # (AUTO) 1.7 K/uL (1.0-4.8); LYMPHOCYTES % (AUTO) 30.4 % (21.0-51.0); MEAN CORPUSCULAR HEMOGLOBIN 28.7 pg (27.0-33.0); MEAN CORPUSCULAR HGB CONC 32.5 g/dL (32.0-36.0); MEAN CORPUSCULAR VOLUME 88.2 fL (79-99); MONOCYTES # (AUTO) 0.6 K/uL (0.1-1.0); MONOCYTES % (AUTO) 11.2 % (3.0-13.0); NEUTROPHILS # (AUTO) 2.9 K/uL (1.8-7.7); NEUTROPHILS % (AUTO) 51.6 % (40.0-77.0); PLATELET COUNT (AUTO) 158 K/uL (130-400); RED BLOOD CELL COUNT(AUTO) 4.25 MIL/uL (4.50-6.20); RED CELL DISTRIBUTION WIDTH 13.6 % (11.0-15.5); WHITE BLOOD COUNT (AUTO) 5.6 K/uL (4.8-10.8)
[2023-07-14 07:41] LABS: ALBUMIN 2.9 g/dL (3.5-5.0); BILIRUBIN,TOTAL 0.5 mg/dL (0.2-1.0); CREATININE 0.9 mg/dL (0.5-1.5); MAGNESIUM 2.1 mg/dL (1.80-2.40); POTASSIUM 3.8 mmol/L (3.5-5.1); TOTAL PROTEIN, SERUM 5.9 g/dL (6.0-8.3)
[2023-07-14] MEDS ORDERED: LEVOFLOXACIN 750 MG/D5W 150 ML 150 ML IV SCH (09:00)
[2023-07-14] MEDS ORDERED: M.V.I. IV [ADULT] 10 ML, FOLIC ACID 1 MG, THIAMINE HCL 100 MG in 0.9%NACL 1000ML 1,000 ML IV SCH (09:00)
[2023-07-14] MEDS: LEVOFLOXACIN 750 MG/D5W 150 ML 150 ML IV SCH (10:02)
[2023-07-14] MEDS: RIVAROXABAN 20 MG TABLET PO SCH (10:03)
[2023-07-14] MEDS: FAMOTIDINE 20MG TAB PO SCH (10:03)
[2023-07-14] MEDS ORDERED: BENZONATATE 100 MG CAPSULE PO PRN (11:30)
[2023-07-14] MEDS: LIDOCAINE 4% ADH..PATCH TP ONE (18:54)
[2023-07-14] MEDS: ACETAMINOPHEN 325 MG TAB PO PRN (22:26)
[2023-07-15] VITALS (15 sets, daily range): BP systolic 106–147; BP diastolic 65–75; PULSE 63–95; RESP 18–24; O2SAT 98–99
[2023-07-15] MEDS ORDERED: LATA2.5D14 OP (02:57)
[2023-07-15] MEDS ORDERED: METH4TAB16 PO (02:57)
[2023-07-15] MEDS ORDERED: FLUT1BLS3 IH (02:57)
[2023-07-15] MEDS ORDERED: LEVOFLOXACIN 500 MG/D5W 100 ML 100 ML IV SCH (07:00)
[2023-07-15 07:29] LABS: BASOPHILS # (AUTO) 0.04 K/uL (0.00-0.20); BASOPHILS % (AUTO) 0.7 % (0.0-5.0); EOSINOPHILS # (AUTO) 0.21 K/uL (0.00-0.70); EOSINOPHILS % (AUTO) 3.7 % (0.0-8.0); IMMATURE GRANULOCYTE ABSOLUTE 0.12 K/uL (0-1); LYMPHOCYTES # (AUTO) 2.1 K/uL (1.0-4.8); LYMPHOCYTES % (AUTO) 36.2 % (21.0-51.0); MEAN CORPUSCULAR HEMOGLOBIN 28.7 pg (27.0-33.0); MEAN CORPUSCULAR HGB CONC 31.8 g/dL (32.0-36.0); MONOCYTES # (AUTO) 0.6 K/uL (0.1-1.0); MONOCYTES % (AUTO) 9.6 % (3.0-13.0); NEUTROPHILS # (AUTO) 2.7 K/uL (1.8-7.7); NEUTROPHILS % (AUTO) 47.7 % (40.0-77.0); PLATELET COUNT (AUTO) 152 K/uL (130-400); RED BLOOD CELL COUNT(AUTO) 4.22 MIL/uL (4.50-6.20); RED CELL DISTRIBUTION WIDTH 13.6 % (11.0-15.5); WHITE BLOOD COUNT (AUTO) 5.7 K/uL (4.8-10.8)
[2023-07-15 07:45] LABS: ALBUMIN 2.8 g/dL (3.5-5.0); BILIRUBIN,TOTAL 0.4 mg/dL (0.2-1.0); POTASSIUM 3.5 mmol/L (3.5-5.1); TOTAL PROTEIN, SERUM 5.9 g/dL (6.0-8.3)
[2023-07-15] MEDS: VITAMIN B COMPLEX PO SCH (08:00)
[2023-07-15] MEDS ORDERED: POTASSIUM CHLORIDE 10% ELIXIR 20 MEQ/15 ML UDCUP PO PRN (08:00)
[2023-07-15] MEDS: FOLIC ACID PO SCH (08:00)
[2023-07-15] MEDS: ASCORBIC ACID PO SCH (08:00)
[2023-07-15] MEDS ORDERED: MAGNESIUM 2GM PREMIX 50ML 50 ML IV PRN (08:00)
[2023-07-15] MEDS ORDERED: POTASSIUM CHLORIDE 20MEQ/100ML 100 ML IV PRN (08:00)
[2023-07-15] MEDS: AMLODIPINE 5 MG TAB PO SCH (08:53)
[2023-07-15] MEDS: KCL 20 MEQ ERTAB PO PRN (08:54)
[2023-07-15] MEDS: LIDOCAINE 4% ADH..PATCH TP SCH (08:54)
[2023-07-15] MEDS: SERTRALINE HCL 50 MG TABLET PO SCH (08:54)
[2023-07-15] MEDS: (Fluticasone/Umeclidin/Vilanter (Trelegy Ellipta 100-62.5- IH SCH (09:15)
[2023-07-15] MEDS: LATANOPROST 2.5 ML DROPS OP SCH (10:23)
[2023-07-15] MEDS: PNEUMOCOCCAL VACCINE POLYVALENT 0.5 ML/VIAL [PPV] IM ONE (19:30)
[2023-07-16 04:30] VITALS: BP 123/77; PULSE 69; RESP 20
[2023-07-16 07:00] VITALS: BP 127/74; PULSE 74; RESP 20
[2023-07-16 07:15] VITALS: PULSE 85; RESP 18
[2023-07-16 08:00] VITALS: O2SAT 99
[2023-07-16 10:03] VITALS: RESP 18; O2SAT 98
[2023-07-16 11:00] VITALS: BP 117/71; PULSE 87; RESP 20
[2023-07-16] MEDS ORDERED: IPRATROPIUM/ALBUTEROL SULFATE 3 ML SOLUTION IH PRN (12:00)
[2023-07-16] MEDS ORDERED: TAMS-1 PO (12:20)
[2023-07-16] MEDS ORDERED: LEVO-70 PO (12:20)
== END 2023-07-16 13:57 | disposition home or self-care (01) ==
LOC: EDH 18:16 → EDHIP 07-14 03:00 → WSH 07-14 07:50
PROVIDERS: ADMIT Hospitalist; ATTEND Hospitalist
DX: N39.0 Urinary tract infection, site not specified (principal); Z20.822 Contact with and (suspected) exposure to COVID-19; D64.9 Anemia, unspecified; M79.605 Pain in left leg; M79.604 Pain in right leg; M40.209 Unspecified kyphosis, site unspecified; J45.909 Unspecified asthma, uncomplicated; I10 Essential (primary) hypertension; I48.91 Unspecified atrial fibrillation; Z90.49 Acquired absence of other specified parts of digestive tract; Z86.711 Personal history of pulmonary embolism; Z87.891 Personal history of nicotine dependence; Z79.01 Long term (current) use of anticoagulants; Z88.0 Allergy status to penicillin; Z91.018 Allergy to other foods
CPT/HCPCS: 82550; 84484; 80053 ×3; 85025 ×3; 87880; 87804 ×2; 83605; 87426; 81001; 36415 ×3; 71045; 94640 ×12; 96365; 96366 ×3; 99284; 83735 ×2; 87420; 97161; 97116; 94664; 96368; 90732; 90471; G0378 ×56; J1956 ×3; J7030 ×2; J3411 ×2; J3490 ×2; 90472

== ENCOUNTER 2023-07-26 16:36 | Observation (INO) | payer OTHER ==
[~2023-07-26] VITALS: Ht 195.6 cm; Wt 110.9 kg
[~2023-07-26 16:36] MED LIST changes: -ALBU10.7 IH; -AZIT500T4 PO; -BENZ-226 PO; +FLUT1BLS3 IH; +LATA2.5D14 OP; +MECL-302 PO; -MECL50TA4 PO; +METH4TAB16 PO; -METH4TAB3 PO; +TAMS-1 PO; -TRAM50TA4 PO
[2023-07-26 16:58] LABS: BASOPHILS # (AUTO) 0.04 K/uL (0.00-0.20); BASOPHILS % (AUTO) 0.5 % (0.0-5.0); EOSINOPHILS # (AUTO) 0.14 K/uL (0.00-0.70); EOSINOPHILS % (AUTO) 1.8 % (0.0-8.0); HEMATOCRIT 39.9 % (42-54); IMMATURE GRANULOCYTE ABSOLUTE 0.11 K/uL (0-1); LYMPHOCYTES # (AUTO) 1.5 K/uL (1.0-4.8); LYMPHOCYTES % (AUTO) 19.7 % (21.0-51.0); MEAN CORPUSCULAR HEMOGLOBIN 28.9 pg (27.0-33.0); MEAN CORPUSCULAR HGB CONC 32.8 g/dL (32.0-36.0); MEAN CORPUSCULAR VOLUME 88.1 fL (79-99); MONOCYTES # (AUTO) 0.7 K/uL (0.1-1.0); MONOCYTES % (AUTO) 9.5 % (3.0-13.0); NEUTROPHILS # (AUTO) 5.2 K/uL (1.8-7.7); NEUTROPHILS % (AUTO) 67.1 % (40.0-77.0); PLATELET COUNT (AUTO) 143 K/uL (130-400); RED BLOOD CELL COUNT(AUTO) 4.53 MIL/uL (4.50-6.20); RED CELL DISTRIBUTION WIDTH 13.4 % (11.0-15.5); WHITE BLOOD COUNT (AUTO) 7.8 K/uL (4.8-10.8)
[2023-07-26 17:07] LABS: CREATININE 1.1 mg/dL (0.5-1.5); POTASSIUM 3.4 mmol/L (3.5-5.1)
[2023-07-26 17:11] LABS: ALBUMIN 3.3 g/dL (3.5-5.0); BILIRUBIN,TOTAL 0.5 mg/dL (0.2-1.0); TOTAL PROTEIN, SERUM 6.5 g/dL (6.0-8.3)
[2023-07-26 21:18] LABS: COVID19 (SARS ANTIGEN RAPID) PRESUMPTIVE NEGATIVE (NEGATIVE); INFLUENZA TYPE A Negative For Type A (NEGATIVE); INFLUENZA TYPE B Negative For Type B (NEGATIVE)
[2023-07-26] MEDS ORDERED: GLUCAGON 1MG KIT 1 MG ML IM PRN (23:30)
[2023-07-26] MEDS ORDERED: ONDANSETRON 4MG INJ IV PRN (23:30)
[2023-07-26] MEDS ORDERED: POTASSIUM CHLORIDE 20MEQ/100ML 100 ML IV PRN (23:30)
[2023-07-26] MEDS ORDERED: POTASSIUM CHLORIDE 10% ELIXIR 20 MEQ/15 ML UDCUP PO PRN (23:30)
[2023-07-26] MEDS ORDERED: ACETAMINOPHEN 325 MG TAB PO PRN (23:30)
[2023-07-26] MEDS ORDERED: DEXTROSE 50%-WATER 50 ML DISP.SYRIN IV PRN (23:30)
[2023-07-26] MEDS ORDERED: MAGNESIUM 2GM PREMIX 50ML 50 ML IV PRN (23:30)
[2023-07-27] VITALS (7 sets, daily range): BP systolic 119; BP diastolic 62; PULSE 62–69; RESP 18–20; O2SAT 97–98
[2023-07-27] MEDS: ASPIRIN 325MG TAB PO ONE (00:59)
[2023-07-27] MEDS: KCL 20 MEQ ERTAB PO PRN (00:59)
[2023-07-27] MEDS: NITROGLYCERIN 1GM OINT 1 INCH/1GM TD SCH (01:00)
[2023-07-27 06:05] LABS: APPEARANCE,URINE CLEAR (CLEAR); BILIRUBIN,URINE NEGATIVE (NEGATIVE); COLOR,URINE YELLOW (YELLOW); GLUCOSE, URINE (UA) NEGATIVE (NEGATIVE); KETONES,URINE NEGATIVE (NEGATIVE); LEUKOCYTE ESTERASE ,URINE 25 Leu/uL (NEGATIVE); NITRATE,URINE NEGATIVE (NEGATIVE); OCCULT BLOOD,URINE NEGATIVE (NEGATIVE); PH,URINE 5.5 (5.0-8.0); PROTEIN,URINE 20 mg/dL (NEGATIVE); UROBILINOGEN,URINE 0.2 mg/dL (0.2-1.0)
[2023-07-27 06:12] LABS: ADD UA MICROSCOPIC YES
[2023-07-27 06:13] LABS: BACTERIA,URINE RARE /HPF (None Seen); MUCUS,URINE RARE LPF (None Seen); SQUAMOUS EPITHELIAL CELL,UR RARE /HPF (0-2)
[2023-07-27] MEDS: ALBUTEROL 0.083% 2.5 MG/3 ML INH IH PRN (06:14)
[2023-07-27 07:22] LABS: BASOPHILS # (AUTO) 0.04 K/uL (0.00-0.20); BASOPHILS % (AUTO) 0.6 % (0.0-5.0); EOSINOPHILS # (AUTO) 0.19 K/uL (0.00-0.70); HEMATOCRIT 35.6 % (42-54); IMMATURE GRANULOCYTE ABSOLUTE 0.13 K/uL (0-1); LYMPHOCYTES # (AUTO) 1.7 K/uL (1.0-4.8); LYMPHOCYTES % (AUTO) 26.6 % (21.0-51.0); MEAN CORPUSCULAR HEMOGLOBIN 29.1 pg (27.0-33.0); MEAN CORPUSCULAR HGB CONC 33.4 g/dL (32.0-36.0); MONOCYTES # (AUTO) 0.6 K/uL (0.1-1.0); MONOCYTES % (AUTO) 9.2 % (3.0-13.0); NEUTROPHILS # (AUTO) 3.8 K/uL (1.8-7.7); NEUTROPHILS % (AUTO) 58.6 % (40.0-77.0); PLATELET COUNT (AUTO) 133 K/uL (130-400); RED BLOOD CELL COUNT(AUTO) 4.09 MIL/uL (4.50-6.20); RED CELL DISTRIBUTION WIDTH 13.6 % (11.0-15.5); WHITE BLOOD COUNT (AUTO) 6.4 K/uL (4.8-10.8)
[2023-07-27] MEDS: INSULIN HUMULIN R 100 UNIT/ML 3ML SQ SCH (07:30)
[2023-07-27 07:39] LABS: ALBUMIN 2.9 g/dL (3.5-5.0); BILIRUBIN,TOTAL 0.7 mg/dL (0.2-1.0); MAGNESIUM 2.2 mg/dL (1.80-2.40); POTASSIUM 4.1 mmol/L (3.5-5.1); TOTAL PROTEIN, SERUM 5.9 g/dL (6.0-8.3)
[2023-07-27 08:54] LABS: CHOLESTEROL 111 mg/dL (<200); HDL CHOLESTEROL 62 mg/dL (29-71); LDL DIRECT 43 mg/dL (0-99); TRIGLYCERIDES 61 mg/dL (30-200)
[2023-07-27] MEDS: FAMOTIDINE 20MG TAB PO SCH (09:09)
[2023-07-27] MEDS: ASPIRIN 81 MG EC TAB PO SCH (09:09)
[2023-07-27] MEDS ORDERED: BENZ-226 PO (21:54)
[2023-07-27] MEDS ORDERED: FERR325T22 PO (21:56)
[2023-07-27] MEDS ORDERED: ALBU6.7H14 IH (22:02)
[2023-07-27] MEDS: BENZONATATE 100 MG CAPSULE PO PRN (23:34)
[2023-07-28] VITALS (7 sets, daily range): BP systolic 101–141; BP diastolic 55–91; PULSE 60–68; RESP 18–20; O2SAT 97
[2023-07-28] MEDS: ACETAMINOPHEN 325 MG TAB PO PRN (02:34)
[2023-07-28] MEDS ORDERED: FOLIC ACID PO SCH (08:00)
[2023-07-28] MEDS ORDERED: [UNRECOGNIZED DRUG - OTHER] PO SCH (08:00)
[2023-07-28] MEDS ORDERED: NON-FORMULARY MEDICATION 1 EACH (Sertraline HCl 25 MG) PO SCH (09:00)
[2023-07-28] MEDS ORDERED: NON-FORMULARY MEDICATION 1 EACH (Ferrous Sulfate 325 MG) PO SCH (09:00)
[2023-07-28] MEDS ORDERED: ALBUTEROL SULFATE IH SCH (09:00)
[2023-07-28] MEDS: TAMSULOSIN HCL 0.4 MG CAP.ER.24H PO SCH (09:29)
[2023-07-28] MEDS: SERTRALINE HCL 50 MG TABLET PO SCH (09:29)
[2023-07-28] MEDS: FERROUS SULFATE 325 MG TABLET.DR PO SCH (09:30)
[2023-07-28] MEDS: PANTOPRAZOLE 40 MG TAB DR PO SCH (09:30)
[2023-07-28] MEDS: RIVAROXABAN 20 MG TABLET PO SCH (09:30)
[2023-07-28] MEDS: Vitamin B Complex/Vit C/Folic Acid PO SCH (09:30)
[2023-07-28] MEDS: AMLODIPINE 5 MG TAB PO SCH (09:31)
[2023-07-28] MEDS: LATANOPROST 2.5 ML DROPS OP SCH (10:57)
== END 2023-07-28 17:00 | disposition home or self-care (01) ==
LOC: EDH 16:36 → EDHIP 23:22 → 4BH 07-27 20:22
PROVIDERS: ADMIT Hospitalist; ATTEND Hospitalist
DX: I10 Essential (primary) hypertension (principal); Z20.822 Contact with and (suspected) exposure to COVID-19; E87.6 Hypokalemia; E11.9 Type 2 diabetes mellitus without complications; D64.9 Anemia, unspecified; F32.A Depression, unspecified; F41.9 Anxiety disorder, unspecified; K21.9 Gastro-esophageal reflux disease without esophagitis; J45.909 Unspecified asthma, uncomplicated; I48.91 Unspecified atrial fibrillation; Z59.00 Homelessness unspecified; Z96.653 Presence of artificial knee joint, bilateral; Z90.49 Acquired absence of other specified parts of digestive tract; Z88.0 Allergy status to penicillin; Z91.018 Allergy to other foods; Z79.82 Long term (current) use of aspirin; Z87.891 Personal history of nicotine dependence; Z86.711 Personal history of pulmonary embolism
CPT/HCPCS: 99285; 84484 ×4; 80053 ×2; 85025 ×2; 87804 ×2; 87426; 36415 ×2; 71045; 93005; 84443; 83735; 80061; 82948 ×4; 84439; 81001; 94640 ×6; 94664; G0378 ×41

== ENCOUNTER 2023-08-17 16:14 | Emergency (ER) | payer OTHER ==
[~2023-08-17] VITALS: Ht 195.6 cm; Wt 115.7 kg
[~2023-08-17 16:14] MED LIST changes: +ALBU6.7H14 IH; +BENZ-226 PO; +FERR325T22 PO; -FLUT1BLS3 IH; -LEVO-70 PO; +MECL-160 PO; -MECL-302 PO; -METH4TAB16 PO; +OMEP40CA21 PO
[2023-08-17 17:03] VITALS: BP 141/68; PULSE 71; RESP 20; O2SAT 99
[2023-08-17] MEDS: ACETAMINOPHEN WITH CODEINE 1 TAB TAB PO ONE (17:46)
[2023-08-17] MEDS ORDERED: NAPR-1196 PO (18:08)
== END 2023-08-17 18:18 | disposition home or self-care (01) ==
LOC: EDH 16:14
DX: S39.011A Strain of muscle, fascia and tendon of abdomen, initial encounter (principal); M79.604 Pain in right leg; I10 Essential (primary) hypertension; J44.9 Chronic obstructive pulmonary disease, unspecified; J45.909 Unspecified asthma, uncomplicated; X58.XXXA Exposure to other specified factors, initial encounter; Y93.89 Activity, other specified; Y92.89 Other specified places as the place of occurrence of the external cause; Y99.8 Other external cause status; Z79.899 Other long term (current) drug therapy; Z98.890 Other specified postprocedural states; Z90.49 Acquired absence of other specified parts of digestive tract; Z88.0 Allergy status to penicillin; Z88.8 Allergy status to other drugs, medicaments and biological substances
CPT/HCPCS: 93971

== ENCOUNTER 2024-03-30 11:27 | Emergency (ER) | payer OTHER ==
[~2024-03-30] VITALS: Ht 195.6 cm; Wt 111.1 kg
[~2024-03-30 11:27] MED LIST changes: -ESOM40CA54 PO; +ESOM40CA66 PO; -MECL-160 PO; +MECL-302 PO; +NAPR-1196 PO; +PHEN-776 PO; +SULF1TAB42 PO
[2024-03-30] MEDS: NEOMY SULF/BACITRA/POLYMYXIN B 1 EACH PACKET TP STA (12:56)
[2024-03-30 15:10] VITALS: BP 113/64; PULSE 70; RESP 16; O2SAT 99
== END 2024-03-30 15:52 | disposition home or self-care (01) ==
LOC: EDH 11:27
DX: S00.81XA Abrasion of other part of head, initial encounter (principal); S80.812A Abrasion, left lower leg, initial encounter; E78.00 Pure hypercholesterolemia, unspecified; J44.9 Chronic obstructive pulmonary disease, unspecified; I10 Essential (primary) hypertension; F17.200 Nicotine dependence, unspecified, uncomplicated; Z79.01 Long term (current) use of anticoagulants; Z79.899 Other long term (current) drug therapy; Z88.0 Allergy status to penicillin; Z90.49 Acquired absence of other specified parts of digestive tract; Z98.890 Other specified postprocedural states; W01.0XXA Fall on same level from slipping, tripping and stumbling without subsequent striking against object, initial encounter; Y93.89 Activity, other specified; Y92.89 Other specified places as the place of occurrence of the external cause; Y99.8 Other external cause status
CPT/HCPCS: 70450; 72125; 72170; 73590